=== PATIENT | male | born 1980 | race Caucasian/White ===

== ENCOUNTER 2020-11-28 22:10 | Emergency (ER) | payer MEDICARE, SELFPAY ==
[2020-11-28 22:14] VITALS: BP 156/95; PULSE 97; RESP 18; TEMP 37; O2SAT 98; BMI 25.7
[2020-11-28] MEDS: PROPARACAINE 0.5% OPHTH SOL 2 DROPS EYE-OP (22:22)
[2020-11-28] MEDS: FLUORESCEIN 1 MG STRIP EYE-RIGHT (22:22)
--- NOTE | 2020-11-28 23:55 | ED.EYEPROB ---
HPI - Eye Problem General Chief complaint: Eye Problems Stated complaint: wood in right eye Time Seen by Provider: 11/28/20 23:47 Source: patient Mode of arrival: Ambulatory Limitations: no limitations History of Present Illness HPI Narrative: Patient is a 39-year-old male who presents with right eye pain. He states that he was moving wood today and feels like he got a piece of wood in his eye. He feels like it is moving around and goes behind his eye. It was flushed out at home by a friend who is a nurse. He continues to have eye irritation sensitive to light. He denies any contacts or glasses. chief complaint: eye pain Onset (ago): hour(s) Onset description: sudden Duration: constant Location: right eye Eye Symptoms: pain and foreign body sensation Place: home Related Data Previous Rx's Medication Instructions Recorded polymyxin B sulf-trimethoprim 2 drp EYE-RIGHT Q4HRWA #10 ml 11/28/20 Allergies Allergy/AdvReac Type Severity Reaction Status Date / Time fentanyl Allergy Verified 11/28/20 22:14 Review of Systems Review of Systems Narrative: GENERAL: Denies chills,fever HEENT: See HPI RESPIRATORY: Denies dyspnea, cough, wheezing CARDIOVASCULAR: Denies chest pain, palpitations GASTROINTESTINAL: Denies nausea, vomiting MUSCULOSKELETAL: Denies extremity pain, injury SKIN: No rash, no laceration, no pruritus NEUROLOGIC: Denies weakness, dizziness, headache, numbness 8 point review of systems is negative except for those stated above and HPI Patient History Social History Smoking Status: Current every day smoker Smoking Status: Current every day smoker tobacco type: vaping alcohol intake frequency: 0-2 drinks per day Substance Use Type: does not use Exam Initial Vital Signs Initial Vital Signs: Vital Signs Temperature 98.6 F 11/28/20 22:14 Pulse Rate 97 H 11/28/20 22:14 Respiratory Rate 18 11/28/20 22:14 Blood Pressure 156/95 H 11/28/20 22:14 Pulse Oximetry 98 11/28/20 22:14 GENERAL: Well-appearing, well-nourished and in no acute distress. EYE: Right eye was treated with proparacaine, stained with fluorescein. +dye uptake on cornea. No foreign body. Eye was irrigated and flushed as well CARDIOVASCULAR: peripheral pulses in tact, cap refill <2 sec RESPIRATORY: No respiratory distress, speaks in full sentences without difficulty EXTREMITIES: Normal range of motion, no clubbing or edema. Neurovascularly intact NEUROLOGICAL: Cranial nerves II through XII grossly intact. Normal gait and speech. SKIN: Warm, dry, no petechiae, no rashes or lesions. Course Orders Ordered: Discontinued Medications Erythromycin (Erythromycin Ophth 1 Gm Oint) 1 applic EYE-RIGHT NOW ONE Stop: 11/29/20 00:01 Last Admin: 11/29/20 00:13 Dose: 1 applic Documented by: [facility] Fluorescein Sodium (Fluorescein 1 Mg Strip) 1 mg EYE-RIGHT NOW ONE Stop: 11/28/20 22:20 Last Admin: 11/28/20 22:22 Dose: 1 mg Documented by: [facility] Proparacaine HCl (Proparacaine 0.5% Ophth Yolanda) 2 drops EYE-OP NOW ONE Stop: 11/28/20 22:19 Last Admin: 11/28/20 22:22 Dose: 1 drop Documented by: [facility] Vital Signs Vital signs: Vital Signs - 8 hr 11/28/20 22:14 11/29/20 00:12 Temperature 98.6 F Pulse Rate 97 H 53 L Respiratory Rate 18 Blood Pressure 156/95 H 131/87 Pulse Oximetry 98 97 Discharge Plan Departure Patient Disposition: Home Clinical Impression: Corneal abrasion Instructions: Corneal Abrasion Activity Restrictions/Additional Instructions: *You have been diagnosed with corneal abrasion *What to do: At this time have a corneal abrasion which you will be extremely sensitive to light. You should start to feel better over the next 2-3 days *Continue to take medications as directed Tylenol 1000 mg every 6 hours if needed for [id number] pain Continue meloxicam as previously prescribed Erythromycin ointment at nighttime *Follow up with your primary care provider in 2-3 days *Return to ER if you should have increasing pain, blurry vision, double vision [or] any new, worsening or concerning symptoms Prescriptions: New polymyxin B sulf-trimethoprim 10,000 unit- 1 mg/mL drops 2 drp EYE-RIGHT Q4HRWA Qty: 10 RF: 0 Referrals: Rohan Colunga MD [Primary Care Provider] -
[2020-11-29 00:12] VITALS: BP 131/87; PULSE 53; O2SAT 97
[2020-11-29] MEDS: ERYTHROMYCIN OPHTH 1 GM OINT 1 APPLIC EYE-RIGHT (00:13)
== END 2020-11-29 00:18 | disposition home or self-care (01) ==
PROVIDERS: Emergency Provider Emergency Medicine
DX: S05.01XA Injury of conjunctiva and corneal abrasion without foreign body, right eye, initial encounter (principal)
CPT/HCPCS: 99282